=== PATIENT | female | born 2005 | race American Indian/Alaskan Native ===

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

== ENCOUNTER 2023-02-15 00:37 | Emergency (ER) | payer OTHER ==
[2023-02-15] MEDS ORDERED: Acetaminophen 500 MG Tab PO ONE (01:11)
== END 2023-02-15 03:56 | disposition home or self-care (01) ==
LOC: DL.ED 00:37
DX: S00.83XA Contusion of other part of head, initial encounter (principal); F07.81 Postconcussional syndrome; F10.920 Alcohol use, unspecified with intoxication, uncomplicated; Y04.0XXA Assault by unarmed brawl or fight, initial encounter
CPT/HCPCS: 70100; 70250; 99282; 99284; A9270-GY

== ENCOUNTER 2025-03-31 05:47 | Emergency (ER) | payer MEDICAID | END 2025-03-31 06:08 | disposition home or self-care (01) | LOC: DL.ED 05:47 | DX: F10.10 Alcohol abuse, uncomplicated (principal); Y90.9 Presence of alcohol in blood, level not specified | CPT/HCPCS: 99284 ==